=== PATIENT | male | born 1950 | race Caucasian/White ===

== ENCOUNTER 2024-10-20 09:35 | Day surgery (SDC) | payer OTHER, SELFPAY ==
--- NOTE | 2024-10-19 11:56 | EKG_ITS ---
[facility] Test Date: 2024-10-19 Pat Name: ERROL CARTER Department: Room: - Gender: Male Heat Treater: RTSJC : 1950 Requested By: Addison Smith Order Number: [id number] Reading MD: Addison Smith Measurements Intervals [place]: 80 P: 44 [place]: 145 QRS: -4 QRSD: 96 T: 41 QT: 362 QTc: 418 Interpretive Statements SINUS RHYTHM INCOMPLETE RIGHT BUNDLE BRANCH BLOCK SEPTAL MYOCARDIAL INFARCTION , PROBABLY OLD No previous ECG available for comparison /store/S0/[id number]/ecg/[id number].pdf
[2024-10-19 12:11] VITALS: BMI 21.8
[2024-10-19 13:06] LABS: Collection Type, Urine Clean Catch; Squamous Epithelial Cell,Urine 0 /hpf (0-5)
[2024-10-19 13:33] LABS: Basophils % (Auto) 0 % (0-2.5); Eosinophils # (Auto) 0.1 Thou/mm3 (0.0-0.5); Eosinophils % (Auto) 1 % (0-10); Hematocrit 39.7 % (41.0-53.0); Hemoglobin 13.2 g/dL (13.5-16.0); Immature Granulocytes % (Auto) 0 % (0-0); Immature Granulocytes Auto 0.03 Thou/mm3 (0.00-0.00); Lymphocytes # (Auto) 1.1 Thou/mm3 (1.0-4.8); Lymphocytes % (Auto) 11 % (10-50); Mean Corpuscular HGB Conc 33.2 g/dl (31.0-37.0); Mean Corpuscular Hemoglobin 29.3 pg (25.0-35.0); Mean Corpuscular Volume 88 fL (80-100); Monocytes # (Auto) 1.1 Thou/mm3 (0.0-0.8); Monocytes % (Auto) 12 % (0-12); Neutrophils # (Auto) 7.1 Thou/mm3 (1.8-7.7); Neutrophils % (Auto) 76 % (37-80); Nucleated Red Blood Cell % 0 /100 WBC (0); Platelet Count 354 Thou/mm3 (140-440); RDW Standard Deviation 45.4 fL (35.1-43.9); White Blood Count 9.4 Thou/mm3 (3.8-10.6)
[2024-10-19 13:50] LABS: Alanine Aminotransferase 14 U/L (10-49); Albumin, Serum 4.3 gm/dL (3.4-4.8); Albumin/Globulin Ratio 1.6 (1.2-2.2); Alkaline Phosphatase 57 U/L (46-116); Anion Gap 7 (7-16); Aspartate Amino Transferase < 8 U/L (0-34); BUN/Creatinine Ratio 26 Ratio (12-20); Bilirubin,Total 0.9 mg/dL (0.3-1.2); Blood Urea Nitrogen 23 mg/dL (9-23); Calcium 10.1 mg/dL (8.3-10.6); Calcium (Corrected) 10.1 mg/dL (8.5-10.1); Chloride 104 mMol/L (98-107); Creatinine (Component) 0.9 mg/dL (0.6-1.3); Estimated Creatinine Clearance 72.4 mL/min (>60); Globulin 2.7 gm/dL (2.3-3.5); Glucose 92 mg/dL (74-106); Osmolality,Calculated 284 (275-295); Potassium 4.4 mMol/L (3.4-5.1); Sodium 141 mMol/L (136-145); eGFR > 60 See Note
[2024-10-19 13:53] LABS: Prostate Specific Antigen 9.39 ng/mL (0-4.00)
[2024-10-19 14:03] LABS: Bacteria,Urine 1+; Bilirubin,Urine Negative (Negative); Blood,Urine 2+ (Negative); Clarity,Urine Turbid (Clear/Hazy); Color,Urine Yellow (Lt Yel-Yel); Glucose, Urine Negative (Negative); Ketones,Urine Negative (Negative); Leukocyte Esterase,Urine Positive (Negative); Nitrite,Urine Negative (Negative); PH,Urine 6.5 (5.0-7.0); Protein,Urine Trace (Neg - Trace); RBC,Urine 97 /hpf (0-3); Specific Gravity,Urine 1.018 (1.001-1.035); Urobilinogen,Urine Negative mg/dL (0.0-1.0); WBC,Urine 269 /hpf (0-5)
--- NOTE | 2024-10-19 15:18 | SUR.PREOP ---
Pt notified to come in tomorrow at 0930 for surgery.
--- NOTE | 2024-10-19 15:19 | SUR.PREOP ---
Cardiac records reviewed with Dr Davalos.
[2024-10-20] VITALS (7 sets, daily range): BP systolic 103–118; BP diastolic 69–83; PULSE 81–99; RESP 16–20; TEMP 36.7–37; O2SAT 97–100; BMI 21.7
--- NOTE | 2024-10-20 07:12 | ESHP_ITS ---
RE: ERROL CARTER : 1950 DATE OF ADMISSION: 10/19/2024 HISTORY OF PRESENT ILLNESS: A 74-year-old male with a history of urethral stricture. He had a suprapubic catheter placed at [facility] on 09/27. Before that, he had a Cid catheter, which was placed in [place] when he could not urinate. Previous surgeries, operation on his knees and shoulder. He had CT scan of the abdomen and pelvis which revealed bilateral hydronephrosis but no stones in the kidney or ureter. The patient does not have any history of diabetes mellitus or no history of hypertension. The patient has a history of pulmonary embolus. SOCIAL HISTORY: He has no children. ALLERGIES: THE PATIENT IS ALLERGIC TO SODIUM PHOSPHATE. MEDICATIONS: 1. Flomax 0.4 mg twice a day. 2. Eliquis 5 mg twice a day. PHYSICAL EXAMINATION: HEENT: Normal. NECK: Supple. LUNGS: Clear. CARDIOVASCULAR: Heart sounds are normal. ABDOMEN: Soft. There is a suprapubic catheter in place. GENITOURINARY: Phallus is normal. Testes are down in scrotum. RECTAL: Rectal examination revealed moderately enlarged smooth prostate without any nodules. IMPRESSION: 1. Urethral stricture. 2. He has a suprapubic catheter. 3. History of urinary retention. PLAN: Cystoscopy and internal visual urethrotomy for urethral stricture. The patient's Eliquis has been stopped. Plan procedure, risks, and complications have been discussed with the patient. The patient understood them and agreed to proceed. DT: 14:27:39 TT: 15:03:00 Ref: [id number] - TID: [id number]
--- NOTE | 2024-10-20 12:45 | SUR.PHASEII ---
1243 Patient arrived to recovery resting comfortably in [facility], drowsy and able to arouse with verbal prompting, breathing unlabored, vital signs stable, dressing intact to suprapubic catheter, urinary catheter 18F in place secure to left leg with leg bag, hematuria present in leg bag, lung sounds clear upon auscultation, bilateral radial pulses present when palpated, report received from Willian ANGELA and Araseli MICHAEL
--- NOTE | 2024-10-20 13:15 | SUR.PHASEII ---
report from nurse moises sherwood patient ready for discharge
--- NOTE | 2024-10-20 13:15 | SUR.PHASEII ---
1315 Report given to Liz MICHAEL, patient sitting up in bed eating ice chip, awake and alert, breathing unlabored, vital signs stable, denies pain
--- NOTE | 2024-10-20 13:30 | SUR.PHASEII ---
pt discharged via wheelchair with all belongings. denies pain and nausea. vss. breathing even and unlabored. fc drained prior to discharge. discharge instructions verbalized by both patient and S/O. Isabelbid called to pharmacy of choice.
--- NOTE | 2024-10-20 20:40 | ESOP_ITS ---
RE: ERROL CARTER : 1950 DATE OF OPERATION: 10/20/2024 PREOPERATIVE DIAGNOSES: Urethral stricture, urethral obstruction, and prostatic enlargement. POSTOPERATIVE DIAGNOSES: Urethral stricture, urethral obstruction, and prostatic enlargement. PROCEDURE PERFORMED: Cystoscopy and internal visual urethrotomy. ANESTHESIA: Monitored anesthesia. INDICATION: The patient is a 74-year-old male who had a urinary obstruction. Attempt to pass Cid catheter in [place] were not successful. The patient eventually had a suprapubic cystostomy done by another urologist in [place]. [facility]. He also happens to have an elevated PSA more than 9. The patient was now scheduled to have cystoscopy and internal urethrotomy for his urethral stricture. Plan, procedure, risks and complications have been discussed with the patient. The patient understood them and agreed to proceed. DESCRIPTION OF PROCEDURE: After the patient was brought to the operating table under adequate monitored anesthesia and dorsal lithotomy position, parts were prepped and draped in the usual fashion. Cystoscopy was then carried out, which revealed adequate ureteral meatus, normal-appearing distal urethra. In the region of the bulbar urethra, there was a moderate degree of urethral stricture, which was opened up with internal visual urethrotome at 12 o'clock position. Prostatic urethra was then visualized, which revealed moderate enlargement of bilobed prostate. The scope was introduced into the bladder. A residual urine was collected, which was 2 ounces and was sent for culture and sensitivity examination. There was a small stone in the urinary bladder, which was drained. The patient had a suprapubic catheter, which was coming from the anterior bladder wall into the bladder. The patient wished to have that kept in after the procedure. There are no other intravesical tumors. Bladder mucosa is moderately trabeculated. Scope was withdrawn. A 16-[place] Cid catheter was then inserted into the bladder and was left indwelling and was connected to a leg back. At this point, suprapubic catheter dressing was changed to a new dressing. The patient was transferred to the recovery room in a satisfactory condition having tolerated the entire procedure well. The patient does have an elevated PSA, which was seen this morning to be more than 9. The patient would require further testing for his elevated PSA. DT: 13:01:04 TT: 20:38:00 Ref: [id number] - TID: [id number]
== END 2024-10-20 13:30 | disposition home or self-care (01) ==
PROVIDERS: Anesthesiology; PCP Internal Medicine; Referring Provider Surgery; Visit Provider Surgery
PROC: 0T7D8ZZ Dilation of Urethra, Via Natural or Artificial Opening Endoscopic (ICD-10-PCS; CPT 52276; principal; 2024-10-20 11:15)
DX: N35.911 Unspecified urethral stricture, male, meatal (principal); N13.8 Other obstructive and reflux uropathy; N40.1 Benign prostatic hyperplasia with lower urinary tract symptoms; Z01.810 Encounter for preprocedural cardiovascular examination
CPT/HCPCS: 52276; 36415; 80053; 81001; 84153; 85025; 87077; 87086; 87186; 93005; A4217; A4649; J0694; J2250; J2704; J3010